=== PATIENT | female | born 1965 | race Caucasian/White ===

== ENCOUNTER 2023-01-29 11:45 | Outpatient (CLI) | payer OTHER, SELFPAY | END 2023-01-29 11:46 | disposition home or self-care (01) | PROVIDERS: PCP Family Medicine; Visit Provider Family Medicine | DX: E55.9 Vitamin D deficiency, unspecified (principal); I10 Essential (primary) hypertension; E11.9 Type 2 diabetes mellitus without complications; E78.5 Hyperlipidemia, unspecified | CPT/HCPCS: 80048; 80061; 82306; 84460; 85025 ==

== ENCOUNTER 2023-09-16 15:40 | Outpatient (CLI) | payer OTHER, SELFPAY | END 2023-09-16 15:41 | disposition home or self-care (01) | LOC: NFLDREF 09-18 12:45 | PROVIDERS: PCP Family Medicine; Referring Provider Family Medicine; Visit Provider Family Medicine | DX: R30.0 Dysuria (principal); E11.9 Type 2 diabetes mellitus without complications | CPT/HCPCS: 81015; 87086; 87186 ==

== ENCOUNTER 2023-12-19 09:00 | Outpatient (CLI) | payer OTHER, SELFPAY | END 2023-12-19 09:01 | disposition home or self-care (01) | LOC: NFLDREF 12-20 07:02 | PROVIDERS: PCP Family Medicine; Referring Provider Family Medicine; Visit Provider Family Medicine | DX: N39.0 Urinary tract infection, site not specified (principal); B96.1 Klebsiella pneumoniae [K. pneumoniae] as the cause of diseases classified elsewhere | CPT/HCPCS: 81015; 87086; 87186 ==

== ENCOUNTER 2024-06-03 08:30 | Outpatient (CLI) | payer OTHER, SELFPAY | END 2024-06-03 08:31 | disposition home or self-care (01) | PROVIDERS: PCP Family Medicine; Visit Provider Family Medicine | DX: E78.2 Mixed hyperlipidemia (principal); I10 Essential (primary) hypertension; E11.9 Type 2 diabetes mellitus without complications; E66.01 Morbid (severe) obesity due to excess calories; N39.0 Urinary tract infection, site not specified; R53.83 Other fatigue | CPT/HCPCS: 80048; 80061; 84460; 87086; 87186 ==

== ENCOUNTER 2024-11-10 09:47 | Outpatient (CLI) | payer OTHER, SELFPAY | END 2024-11-10 09:48 | disposition home or self-care (01) | PROVIDERS: PCP Family Medicine; Visit Provider Family Medicine | DX: I10 Essential (primary) hypertension (principal); E11.42 Type 2 diabetes mellitus with diabetic polyneuropathy; E78.2 Mixed hyperlipidemia | CPT/HCPCS: 80048; 85025 ==

== ENCOUNTER 2024-12-21 07:42 | Outpatient (CLI) | payer OTHER, SELFPAY ==
--- NOTE | 2024-12-21 09:33 | P.ANES_ITS ---
Anesthesia Charges Start Date/Time Anesthesia Start Date: 12/21/24 Anesthesia Start Time: 08:36 Stop Date/Time Anesthesia Stop Date: 12/21/24 Anesthesia Stop Time: 09:30 Coding CPT Codes CPT Codes: ANES LWR INTST NDSC NOS - [id number] ([id number]) P3 - PATIENT W/SEVERE SYS DISEASE, QX - BLEACH CHLORINATOR SVC W/ MD MED DIRECTION, QK - REFRIGERATION ENGINEER 2-4 CNCRNT ANES PROC
--- NOTE | 2024-12-21 09:33 | W.ANESCHARGE ---
Anesthesia Charges Start Date/Time Anesthesia Start Date: 12/21/24 Anesthesia Start Time: 08:36 Stop Date/Time Anesthesia Stop Date: 12/21/24 Anesthesia Stop Time: 09:30 Coding CPT Codes CPT Codes: ANES LWR INTST NDSC NOS - [id number] ([id number]) P3 - PATIENT W/SEVERE SYS DISEASE, QX - SHAPER MACHINE HAND SVC W/ MD MED DIRECTION, QK - PERSONNEL INTERVIEWER 2-4 CNCRNT ANES PROC
--- NOTE | 2024-12-21 09:51 | P.ANES_ITS ---
Anesthesia Charges Start Date/Time Anesthesia Start Date: 12/21/24 Anesthesia Start Time: 08:36 Stop Date/Time Anesthesia Stop Date: 12/21/24 Anesthesia Stop Time: 09:30 Coding CPT Codes CPT Codes: ANES LWR INTST NDSC NOS - [id number] ([id number]) QK - TERRITORY MANAGER 2-4 CNCRNT ANES PROC, QX - SUPERVISOR PUBLICATIONS SVC W/ MED DIRECTION, P3 - PATIENT W/SEVERE SYS DISEASE
--- NOTE | 2024-12-21 09:51 | W.ANESCHARGE ---
Anesthesia Charges Start Date/Time Anesthesia Start Date: 12/21/24 Anesthesia Start Time: 08:36 Stop Date/Time Anesthesia Stop Date: 12/21/24 Anesthesia Stop Time: 09:30 Coding CPT Codes CPT Codes: ANES LWR INTST NDSC NOS - [id number] ([id number]) QK - SENIOR FINANCIAL REPORTING ANALYST 2-4 CNCRNT ANES PROC, QX - DECOMMISSIONING WELL SITE MANAGER SVC W/ MED DIRECTION, P3 - PATIENT W/SEVERE SYS DISEASE
== END 2024-12-21 07:43 | disposition home or self-care (01) ==
LOC: OP CLINIC 07:42
PROVIDERS: PCP Family Medicine; Visit Provider Surgery
DX: K50.90 Crohn's disease, unspecified, without complications (principal); D17.5 Benign lipomatous neoplasm of intra-abdominal organs; D12.8 Benign neoplasm of rectum; Z98.0 Intestinal bypass and anastomosis status
CPT/HCPCS: 00811; 45380; 45385; 88305; J2704

== ENCOUNTER 2025-01-29 13:34 | Outpatient (CLI) | payer OTHER, SELFPAY ==
--- NOTE | 2025-01-29 14:00 | CRLHL7_ITS ---
For Patients: As a result of the Century Cures Act, medical imaging exams and procedure reports are released immediately into your electronic medical record. You may view this report before your referring provider. If you have questions, please contact your health care provider. BILATERAL SCREENING MAMMOGRAM WITH COMPUTER-AIDED DETECTION AND TOMOSYNTHESIS TECHNIQUE: CC and MLO views were obtained. These mammographic images have been obtained using full-field digital technique. These mammographic images were interpreted with the benefit of computer-aided detection. Breast Tomosynthesis was used in this interpretation. COMPARISON FILM: 02/23/13, 03/29/09. FINDINGS: There are scattered areas of fibroglandular density. IMPRESSION: There is no radiographic evidence for malignancy. ASSESSMENT: BI-RADS Category 1: Negative RECOMMENDATION: Routine screening mammogram in 1 year. A lay language report of this examination will be provided to the patient. Austyn Torres M.D. Diagnostic Radiologist [email or web address] SP/Dictated by: Austyn Torres MD @ 02/01/2025 9:20:00 AM (Electronically Signed)
== END 2025-01-29 13:35 | disposition home or self-care (01) ==
LOC: MAMMO 13:34
PROVIDERS: PCP Family Medicine; Visit Provider Family Medicine
DX: Z12.31 Encounter for screening mammogram for malignant neoplasm of breast (principal)
CPT/HCPCS: 77063; 77067

== ENCOUNTER 2025-06-08 09:44 | Outpatient (CLI) | payer OTHER, SELFPAY | END 2025-06-08 09:45 | disposition home or self-care (01) | PROVIDERS: PCP Family Medicine; Visit Provider Family Medicine | DX: I10 Essential (primary) hypertension (principal); E78.5 Hyperlipidemia, unspecified; E55.9 Vitamin D deficiency, unspecified; R80.9 Proteinuria, unspecified; E11.9 Type 2 diabetes mellitus without complications | CPT/HCPCS: 80048; 80061; 84460 ==